=== PATIENT | male | born 2000 | race Caucasian/White ===

== ENCOUNTER → 2021-10-25 11:49 | Outpatient (CLI) | payer OTHER, SELFPAY ==
--- NOTE | 2021-10-25 | DI.MRI.S_ITS ---
PROCEDURE: MR KNEE RT WO CON INDICATIONS: Other internal derangements of unspecified knee TECHNIQUE: Noncontrast sagittal PD fast spin echo and T2 fast spin echo with fat saturation, sagittal 3-D FLASH with fat saturation; coronal T1 spin echo and PD fast spin echo with fat saturation, and axial PD fast spin echo with fat saturation through the knee. COMPARISON: None. FINDINGS: Image quality: Excellent. Menisci: There is a small horizontal tear in the peripheral aspect of the body of the medial meniscus. The lateral meniscus normal morphology and internal signal. The meniscal root ligaments appear intact. Cruciate ligaments: Subtle increased signal and striated appearance of anterior cruciate ligament suggest mild spurring. The posterior cruciate ligament appears intact. Medial structures: The medial collateral ligament appears intact. The semimembranosus tendon insertions and meniscocapsular junction appear intact. Visualized portions of the pes anserinus tendons appear normal. No abnormal bursal fluid. Lateral structures: The lateral collateral ligament and the biceps femoris tendon appear intact. The popliteus tendon appears normal. Iliotibial band appears normal. Anterior structures: The quadriceps and patellar tendons appear intact. Mild contusion of medial aspect of patella and prepatellar soft tissue. Patellar alignment is normal. No femoral trochlear dysplasia or ventral trochlear prominence. No edema in the infrapatellar fat pad. Bones and cartilage: Mild contusion of the lateral femoral condyle. There are also subtle contusions of lateral tibial plateau and medial femoral condyle. No fractures. The cartilage of the medial and lateral femorotibial compartments, as well as the patellofemoral compartment, appears normal in thickness. Joint space: There is trace knee joint fluid. No العلي's cyst. Normal appearing synovial plicae are incidentally noted. IMPRESSION: 1. Small horizontal tear involving the body of the medial meniscus. 2. Suggestion of mild sprain of ACL. 3. Mild contusion of medial aspect of the patella and prepatellar soft tissue. 4. Mild contusions of the lateral and medial femoral condyles, as well as the lateral tibial plateau. Dictated by: Eren Stokes M.D. on 10/27/2021 at 8:00 Approved by: Eren Stokes M.D. on 10/27/2021 at 8:35
== END ==
PROVIDERS: Referring Provider Orthopaedic Surgery; Visit Provider Orthopaedic Surgery
DX: S83.241A Other tear of medial meniscus, current injury, right knee, initial encounter (principal); S80.01XA Contusion of right knee, initial encounter; M23.8X1 Other internal derangements of right knee; M25.561 Pain in right knee
CPT/HCPCS: 73721